=== PATIENT | female | born 1940 | race Two or more races ===

== ENCOUNTER 2018-09-09 07:56 | Outpatient (CLI) | payer OTHER | END 2018-09-09 08:50 | disposition home or self-care (01) | LOC: RX STUDY 07:56 | DX: R13.0 Aphagia (principal) ==

== ENCOUNTER 2022-12-20 05:45 | Day surgery (SDC) | payer OTHER ==
[~2022-12-20] VITALS: Ht 160 cm; Wt 62.1 kg
[~2022-12-20 05:45] MED LIST: BONIVA150 MG PO; D3 + K2 DOTS 11 EACH PO; LIPITOR20 MG PO; LOSARTAN POTASS50 MG PO; SYNTHROID50 MCG PO
[2022-12-20] MEDS ORDERED: CILOXAN5 ML OTIC (08:35)
[2022-12-20] MEDS ORDERED: CEPHALEXIN500 MG PO (08:36)
== END 2022-12-20 13:00 | disposition home or self-care (01) ==
LOC: CIR.AMB 05:45
PROVIDERS: ATTEND Otolaryngology Otology & Neurotology
DX: H72.02 Central perforation of tympanic membrane, left ear (principal); H90.12 Conductive hearing loss, unilateral, left ear, with unrestricted hearing on the contralateral side; Z20.822 Contact with and (suspected) exposure to COVID-19; I10 Essential (primary) hypertension; E03.9 Hypothyroidism, unspecified